=== PATIENT | female | born 1960 | race Caucasian/White ===

== ENCOUNTER 2017-10-24 17:28 | Emergency (ER) | payer BC ==
[~2017-10-24] VITALS: Ht 157.5 cm; Wt 79.4 kg
[~2017-10-24 17:28] MED LIST: ACYC400 PO; Bupropion HCl200 MG PO; CONEST1.25 PO; DICY20 PO; FAMC250; HYDMOR2 PO; LOPE2C PO; META800 PO; METF500 PO; Multiple Vitam1 EAC1 PO; NAPR550 PO; OXYC1TAB11 PO; PROM25 PO; RXHYDACE PO; RXNAPNA550 PO; TYLENOL; [UNRECOGNIZED DRUG - OTHER]
[2017-10-24] MEDS ORDERED: Valtrex1000 MG PO (17:57)
== END 2017-10-24 18:18 | disposition home or self-care (01) ==
LOC: ER 17:28
DX: G51.0 Bell's palsy (principal); Z91.048 Other nonmedicinal substance allergy status; Z88.5 Allergy status to narcotic agent; Z91.040 Latex allergy status; Z79.891 Long term (current) use of opiate analgesic; F32.9 Major depressive disorder, single episode, unspecified
CPT/HCPCS: 93005; 93010; 99283

== ENCOUNTER 2019-07-12 11:39 | Emergency (ER) | payer BC ==
[~2019-07-12] VITALS: Ht 157.5 cm; Wt 72.6 kg
[~2019-07-12 11:39] MED LIST changes: +Valtrex1000 MG PO
[2019-07-12 12:36] LABS: Influenza A Negative (NEGATIVE); Influenza B Negative (NEGATIVE)
[2019-07-12] MEDS ORDERED: ACYCLOVIR400 MG PO (12:53)
[2019-07-12] MEDS ORDERED: AZIT250 PO (13:15)
== END 2019-07-12 13:25 | disposition home or self-care (01) ==
LOC: ER 11:39
PROVIDERS: Emergency Medicine
DX: J11.00 Influenza due to unidentified influenza virus with unspecified type of pneumonia (principal); Z88.5 Allergy status to narcotic agent; Z91.040 Latex allergy status; Z91.048 Other nonmedicinal substance allergy status; Z79.899 Other long term (current) drug therapy; F32.9 Major depressive disorder, single episode, unspecified
CPT/HCPCS: 71046; 87804; 99283-25